=== PATIENT | female | born 1975 | race Caucasian/White ===

== ENCOUNTER → 2017-12-19 | Outpatient (CLI) | payer BC, OTHER ==
[~2017-12-19] MED LIST: ACE3 PO; CET10 PO; ETHI1TAB26 PO; IBU800 PO; IBUP-1618 PO; NAPR-723 PO; RELPAX PO; ZIA10 PO
--- NOTE | 2017-12-19 12:21 | RADIOLOGY IMAGING REPORT ---
FACILITY: [facility] - [place] PATIENT NAME: JC BANERJEE : [id number] MR: [id number] V: [id number] EXAM DATE: [id number] ORDERING PHYSICIAN: ALY GODOY TECHNOLOGIST: Aniyah Mujica PROCEDURE:BILATERAL DIGITAL SCREENING MAMMOGRAM WITH CAD ASSISTED INTERPRETATION & 3D TOMOSYNTHESIS COMPARISON:Baseline INDICATIONS:screening BREAST DENSITY: Heterogeneously dense FINDINGS: There is no dominant mass, suspicious cluster of calcifications or persistent areas of architectural distortion. DIAGNOSTIC CATEGORY 1--NEGATIVE. RECOMMENDATIONS: ROUTINE MAMMOGRAM AND CLINICAL EVALUATION IN 1 YR. IMPRESSION: BIRADS 1: Negative Dictated by: William Omalley M.D. on 12/19/2017 at 9:13 Transcribed by: RHIANNON on 12/19/2017 at 11:25 Approved by: William Omalley M.D. on 12/19/2017 at 12:20 [facility]
== END ==
LOC: MAMO 00:55
PROVIDERS: ATTEND Obstetrics & Gynecology
DX: Z12.31 Encounter for screening mammogram for malignant neoplasm of breast (principal)
CPT/HCPCS: 77063; 77067

== ENCOUNTER → 2018-06-19 | Outpatient (CLI) | payer OTHER ==
--- NOTE | 2018-06-19 17:20 | RADIOLOGY IMAGING REPORT ---
FACILITY: [facility] [place] PATIENT NAME: Glenda Anand : 1975 MR: [id number] V: [id number] EXAM DATE: ORDERING PHYSICIAN: SHALONDA MITCHELL TECHNOLOGIST: Location: [facility] [place] Patient: Glenda Anand : 1975 Visit/Account:[id number] Date of Sevice: 06/19/2018 Exam type: LUMBAR SPINE 2 OR 3 VIEW History: June 04, heard a pop three weeks ago Comparison: None. 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 There is a gentle dextroconvex scoliosis. IMPRESSION: 1. 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
== END ==
LOC: RAD 15:32
PROVIDERS: ATTEND Family Medicine
DX: M41.86 Other forms of scoliosis, lumbar region (principal)
CPT/HCPCS: 72100